=== PATIENT | male | born 1970 | race African-American/Black ===

== ENCOUNTER 2017-02-15 13:22 | Emergency (ER) | payer MEDICAID ==
[~2017-02-15] VITALS: Ht 182.9 cm; Wt 74.8 kg
[2017-02-15] MEDS ORDERED: NOREPINEPHRINE BITARTRATE 250 ML IV ONE (13:31)
[2017-02-15] MEDS ORDERED: MANNITOL FTV 25% 12.5 GM/50 ML 50 ML IV ONE (13:53)
[2017-02-15 13:57] VITALS: BP 74/44
[2017-02-15] MEDS ORDERED: MANNITOL 20% SOLN 100 gm/500ml 250 ML IV ONE (14:00)
[2017-02-15 14:49] LABS: Basophils # (auto) 0 uL; Basophils % (auto) 0.3 % (0.0-2.0); CONDITION Y; Eosinophils # (auto) 0.1 uL; Eosinophils % (auto) 0.6 % (0.0-7.0); Hemoglobin 13.6 g/dL (13.5-17.5); Lymphocytes # (auto) 5.4 uL; Lymphocytes % (auto) 36.7 % (10.0-50.0); Mean Corpuscular Hemoglobin 28.1 pg (28.0-32.0); Mean Corpuscular Volume 82.6 fL (80.0-100.0); Mean Platelet Volume 8.7 fL (7.4-10.4); Monocytes # (auto) 0.7 uL; Monocytes % (auto) 4.5 % (0.0-12.0); Neutrophils # (auto) 8.5 uL; Neutrophils % (auto) 57.9 % (37.0-80.0); Platelet Count (auto) 221 10^3/uL (140-450); Red Cell Distribution Width 13.7 % (11.6-16.0); White Blood Cell 14.7 10^3/uL (4.4-10.8)
[2017-02-15 15:04] LABS: INR 1.72 (0.9-1.15); Partial Thromboplastin Time 69.6 sec (22.64-33.71); Prothrombin Time 18.8 sec (9.37-12.3)
[2017-02-15 15:10] LABS: Albumin 3.3 g/dL (3.4-5.0); Bilirubin, Total 0.3 mg/dL (0.2-1.0); Calcium 7.9 mg/dL (8.5-10.1); Potassium 3.6 mmol/L (3.5-5.1)
[2017-02-15] MEDS ORDERED: SODIUM BICARBONATE 8.4% INJ 50ML SYRINGE IV ONE (16:15)
== END 2017-02-15 14:09 | disposition short-term general hospital (02) ==
LOC: ER 13:22
DX: I46.9 Cardiac arrest, cause unspecified (principal); I61.9 Nontraumatic intracerebral hemorrhage, unspecified; S14.109A Unspecified injury at unspecified level of cervical spinal cord, initial encounter; V49.3XXA Car occupant (driver) (passenger) injured in unspecified nontraffic accident, initial encounter; Y93.89 Activity, other specified; Y92.89 Other specified places as the place of occurrence of the external cause; Y99.8 Other external cause status
CPT/HCPCS: 31500; 36415; 36430; 51702; 70450; 71010; 71250; 72125; 74176; 80053; 85025; 85610; 85730; 86850; 86900; 86901; 86920; 92950; 99291; J7040; P9016; J7060